=== PATIENT | male | born 1960 | race Caucasian/White ===

== ENCOUNTER 2017-09-15 15:20 | Emergency (ER) | payer BC ==
[2017-09-15] MEDS ORDERED: Proparacaine 0.5% Ophth Soln 15 ML Bottle EYEBOTH STA (15:32)
[2017-09-15] MEDS ORDERED: Diazepam 5 MG/ML 10 ML Vial MDV IV ONE (16:03)
[2017-09-15] MEDS ORDERED: Morphine 4 MG/ML Syringe IVPUSH ONE (16:03)
--- NOTE | 2017-09-15 16:05 | EDM.PDOC ---
ED HPI GENERAL MEDICAL PROBLEM - General Chief Complaint: Eye Problems Stated Complaint: PT SPILL FLUID IN LT EYE Time Seen by Provider: 09/15/17 15:32 Source of Information: Reports: Patient History Limitations: Reports: No Limitations - History of Present Illness INITIAL COMMENTS - FREE TEXT/NARRATIVE: History of present illness: []Patient poked his left eye with needle nose pliers approximately one hour ago. He has foreign body sensation in his eye and states his vision is mildly blurry. Review of systems: As per history of present illness and below otherwise all systems reviewed and negative. Past medical history: As per history of present illness and as reviewed below otherwise noncontributory. Surgical history: As per history of present illness and as reviewed below otherwise noncontributory. Social history: No reported history of drug or alcohol abuse. Family history: As per history of present illness and as reviewed below otherwise noncontributory. Physical exam: General: Well developed, well nourished in NAD HEENT: Eye erythematous, normocephalic, pupils reactive, negative for conjunctival pallor or scleral icterus, mucous membranes moist, throat clear, neck supple, nontender, trachea midline. Lungs: Clear to auscultation, breath sounds equal bilaterally, chest nontender. Heart: S1S2, regular, negative for clicks, rubs, or JVD. Abdomen: Soft, nondistended, nontender. Negative for masses or hepatosplenomegaly. Negative for costovertebral tenderness. Pelvis: Stable nontender. Genitourinary: Deferred. Rectal: Deferred. Extremities: Atraumatic, negative for cords or calf pain. Neurovascular unremarkable. Neuro: Awake, alert, oriented. Cranial nerves II through XII unremarkable. Cerebellum unremarkable. Motor and sensory unremarkable throughout. Exam nonfocal. Diagnostics: []Proparacaine placed in left eye and stained with fluorescein evaluated under blue light Therapeutics: [] Impression: []Corneal abrasion left eye Plan: []Erythromycin ointment as directed and follow-up with ophthalmology as needed Definitive disposition and diagnosis as appropriate pending reevaluation and review of above. Left Eye Pain Score (Numeric/FACES): 2 - Related Data Allergies Allergy/AdvReac Type Severity Reaction Status Date / Time No Known Allergies Allergy Verified 09/15/17 16:00 Home Meds: Home Meds Erythromycin Base [Erythromycin 0.5% Ophth Oint] 1 applic OP Q12H #1 tube [Rx] Past Medical History Psychiatric History: Reports: Other (See Below) Other Psychiatric History: narcolepsy - Infectious Disease History Infectious Disease History: Reports: Chicken Pox Social & Family History - Family History Family Medical History: Noncontributory - Tobacco Use Smoking Status *Q: Never Smoker - Recreational Drug Use Recreational Drug Use: No ED ROS GENERAL - Review of Systems Review Of Systems: See Below (See history of present illness) ED EXAM GENERAL W FULL EYE - Physical Exam Exam: See Below (See history of present illness) Course - Vital Signs Last Recorded V/S: Last Vital Signs Temp 97.7 F 09/15/17 15:58 Pulse 80 09/15/17 15:58 Resp 18 09/15/17 15:58 BP 122/82 09/15/17 15:58 Pulse Ox 93 L 09/15/17 15:58 - Orders/Labs/Meds Meds: Medications Discontinued Medications Generic Name Dose Route Start Last Admin Trade Name Keli PRN Reason Stop Dose Admin Proparacaine HCl 1 ml 09/15/17 15:32 Proparacaine 0.5% Ophth Soln EYEBOTH 09/15/17 15:33 NOW STA Departure - Departure Time of Disposition: 16:29 Disposition: Home, Self-Care 01 Condition: Good Clinical Impression: Injury of conjunctiva and corneal abrasion of left eye without foreign body - Discharge Information Prescriptions: Erythromycin Base [Erythromycin 0.5% Ophth Oint] 1 applic OP Q12H #1 tube Referrals: PCP,None [Primary Care Provider] - Forms: ED Department Discharge
== END 2017-09-15 16:50 | disposition home or self-care (01) ==
LOC: MW.ED 15:20
DX: S05.02XA Injury of conjunctiva and corneal abrasion without foreign body, left eye, initial encounter (principal); W22.8XXA Striking against or struck by other objects, initial encounter
CPT/HCPCS: 99282; 99283

== ENCOUNTER 2018-01-27 09:23 | Day surgery (SDC) | payer BC ==
[~2018-01-27 09:23] MED LIST: Lactated Ringers 1,000 ML IV SCH
--- NOTE | 2018-01-27 10:07 | PCM.PREANE ---
Preanesthetic Assessment - Procedure Proposed Procedure: Colonoscopy - Anesthesia/Transfusion/Family Hx Anesthesia History: No Prior Anesthesia Family History of Anesthesia Reaction: No Transfusion History: No Prior Transfusion(s) - Review of Systems General: No Symptoms Pulmonary: No Symptoms Cardiovascular: No Symptoms Gastrointestinal: No Symptoms Neurological: No Symptoms, Other (stroke in late 1190s - recovered) Other: Reports: None - Physical Assessment NPO Status Date: 01/27/18 NPO Status Time: 05:00 (water) Height: 5 ft 11 in Weight: 186 lb ASA Class: 2 Mental Status: Alert & Oriented x3 Airway Class: Mallampati = 1 Dentition: Reports: Normal Dentition Thyro-Mental Finger Breadths: 3 Mouth Opening Finger Breadths: 3 ROM/Head Extension: Full Lungs: Clear to Auscultation, Normal Respiratory Effort Cardiovascular: Regular Rate, Regular Rhythm, No Murmurs - Allergies Allergies/Adverse Reactions: Allergies Allergy/AdvReac Type Severity Reaction Status Date / Time No Known Allergies Allergy Verified 01/22/18 08:30 - Blood Blood Available: No - Anesthesia Plan Pre-Op Medication Ordered: None - Acknowledgements Anesthesia Type Planned: MAC Pt an Appropriate Candidate for the Planned Anesthesia: Yes Alternatives and Risks of Anesthesia Discussed w Pt/Guardian: Yes Pt/Guardian Understands and Agrees with Anesthesia Plan: Yes PreAnesthesia Questionnaire HEENT History: Reports: Other (See Below) Other HEENT History: wears glasses Neurological History: Reports: CVA, TIA, Other (See Below) Other Neuro History: cerebral infarct 1998, 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, excessive somnolence Psychiatric History: Reports: Other (See Below) Other Psychiatric History: excessive somnolence - Infectious Disease History Infectious Disease History: Reports: Chicken Pox - Past Surgical History Head Surgeries/Procedures: Reports: None - SUBSTANCE USE Smoking Status *Q: Never Smoker Recreational Drug Use History: No - HOME MEDS Home Medications: Home Meds Alpha Lipoic Acid 200 mg PO DAILY 01/22/18 [History] Calcium Citrate/Vitamin D3 [Citracal + D Maximum Caplet] 1 tab PO BID 01/22/18 [ History] Collodion 1 dose PO DAILY 01/22/18 [History] Fish Oil/[place]-3 Fatty Acids [Fish Oil 1,000 MG] 1 tab PO DAILY 01/22/18 [ History] Garlic 1 tab PO DAILY 01/22/18 [History] Gluc HCl/Csa/Tory Hy/Hyalur Ac [Glucosamine Chondroitin] 1 tab PO DAILY [History] Modafinil 200 mg PO DAILY 01/22/18 [History] Multivitamin [Multivitamins] 1 tab PO DAILY 01/22/18 [History] Tretinoin/Emollient Base [Tretinoin 0.05% Emollient Crm] 1 applic TOP ASDIRECTED 01/22/18 [History] Ubidecarenone/[place]-3/Vit E [Co Q-10-Vit E-Fish Oil Sfgl] 1 tab PO DAILY [History] - CURRENT (IN HOUSE) MEDS Current Meds: Current Medications Lactated Ringer's (Ringers, Lactated) 1,000 mls @ 125 mls/hr IV ASDIRECTED GI
[2018-01-27] MEDS ORDERED: fentaNYL 100 MCG/2 ML SDV ONE (10:28)
[2018-01-27] MEDS ORDERED: Propofol 200 MG/20 ML SDV ONE ×2 (10:28→10:29)
[2018-01-27] MEDS ORDERED: Lidocaine 2% 5 ML SDV ONE (10:28)
[2018-01-27] MEDS ORDERED: Midazolam 1 MG/ML 2 ML SDV ONE (10:28)
[2018-01-27] MEDS ORDERED: Ondansetron 4 MG/2 ML SDV IVPUSH PRN (11:14)
[2018-01-27] MEDS ORDERED: Sodium Chloride 0.9% 10 ML Syringe FLUSH PRN (11:14)
[2018-01-27] MEDS ORDERED: Sodium Chloride 0.9% 2.5 ML Syringe FLUSH PRN (11:14)
--- NOTE | 2018-01-27 11:16 | PCM.OPNOTE ---
- General Post-Op/Procedure Note Date of Surgery/Procedure: 01/27/18 Operative Procedure(s): Colonoscopy Pre Op Diagnosis: Desire for colorectal cancer screening Post-Op Diagnosis: No evidence of neoplasia Anesthesia Technique: MAC (ASA II) Primary Surgeon: Santos Jones Forest Firefighter: Chris Couch Condition: Good Free Text/Narrative:: DICTATION [id number] CPT CODE 36139
--- NOTE | 2018-01-27 11:41 | PCM.POSTAN ---
POST ANESTHESIA ASSESSMENT - MENTAL STATUS Mental Status: Alert, Oriented - RESPIRATORY Respiratory Status: Respiratory Rate WNL, Airway Patent, O2 Saturation Stable - CARDIOVASCULAR CV Status: Pulse Rate WNL, Blood Pressure Stable - GASTROINTESTINAL GI Status: No Symptoms - POST OP HYDRATION Hydration Status: Adequate & Stable
--- NOTE | 2018-01-27 12:20 | PCM48HPAN ---
Post Anesthesia Note - EVALUATION WITHIN 48HRS OF ANESTHETIC Vital Signs in Normal Range: Yes Patient Participated in Evaluation: Yes Respiratory Function Stable: Yes Airway Patent: Yes Cardiovascular Function Stable: Yes Hydration Status Stable: Yes Pain Control Satisfactory: Yes Nausea and Vomiting Control Satisfactory: Yes Mental Status Recovered: Yes Resp Rate: 16 - COMMENTS/OBSERVATIONS Free Text/Narrative:: Still noting the effects of mild disorientation but knows he is done and taking PO; no complaints.
--- NOTE | 2018-01-27 12:54 | OR ---
SURGEON: Santos Jones M.D. DATE OF PROCEDURE: 01/27/2018 OPERATION PERFORMED: Colonoscopy. SCHEDULING MANAGER: Dr. Alvarado, PGY2 ANESTHESIA: MAC. ASA CLASSIFICATION: II. PREOPERATIVE DIAGNOSIS: Desire for colorectal cancer screening. POSTOPERATIVE DIAGNOSIS: No evidence of neoplasia. DESCRIPTION OF PROCEDURE: The patient was taken to the endoscopy room and positioned on the endoscopy table in the left lateral decubitus position. Time-out was called for appropriate identification of the patient and procedure. Monitored anesthesia care was provided. The colonoscope was inserted into the rectum and advanced with minimal difficulty to the cecum where the colonoscope was retroflexed to visualize the ascending colon from below. The colonoscope was then straightened and slowly withdrawn. The cecum, ascending colon, hepatic flexure, transverse colon, splenic flexure, descending colon, sigmoid colon, and rectum were very well visualized. No tumors, polyps, diverticula, or angiodysplastic changes were noted. There was no evidence of inflammatory bowel disease. Once the colonoscope was withdrawn to the rectum, it was retroflexed to visualize the anal orifice from above. Again, no tumors or polyps were seen, and there were no acute hemorrhoidal changes. The colonoscope was then straightened, the rectum aspirated, and the colonoscope removed. The patient tolerated the procedure well and was taken to recovery room in satisfactory condition. HEIDY CUEVA /[id number]
== END 2018-01-27 13:05 | disposition home or self-care (01) ==
LOC: MW.SDS 09:23
PROVIDERS: ATTEND Surgery
DX: Z12.11 Encounter for screening for malignant neoplasm of colon (principal); E78.5 Hyperlipidemia, unspecified; N52.9 Male erectile dysfunction, unspecified; G47.10 Hypersomnia, unspecified; L72.3 Sebaceous cyst; Z79.899 Other long term (current) drug therapy
CPT/HCPCS: 45378; J2250; J2704; J3010; J7120; 00812

== ENCOUNTER 2018-03-17 06:33 | Day surgery (SDC) | payer BC ==
[~2018-03-17 06:33] MED LIST changes: +ceFAZolin 2 GM in Premix Bag 1 BAG IV SCH
[2018-03-17] MEDS ORDERED: Propofol 200 MG/20 ML SDV ONE (06:52)
[2018-03-17] MEDS ORDERED: Rocuronium 10 MG/ML 10 ML Syringe ONE (06:53)
[2018-03-17] MEDS ORDERED: ePHEDrine 50 MG/ML SDV ONE (06:53)
[2018-03-17] MEDS ORDERED: Lidocaine 2% 5 ML SDV ONE (06:53)
[2018-03-17] MEDS ORDERED: fentaNYL 250 MCG/5 ML SDV ONE (06:54)
[2018-03-17] MEDS ORDERED: Midazolam 1 MG/ML 2 ML SDV ONE (06:54)
[2018-03-17] MEDS ORDERED: Succinylcholine 200 MG/10 ML MDV ONE (06:55)
[2018-03-17] MEDS ORDERED: Bupivacaine 0.5% 10 ML SDV ONE (07:20)
[2018-03-17] MEDS ORDERED: ceFAZolin 1 GM Vial ONE (07:20)
--- NOTE | 2018-03-17 07:33 | PCM.PREANE ---
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 no residual. - Review of Systems General: No Symptoms (discovered at time of other medical care), Other Pulmonary: No Symptoms Cardiovascular: Other (occasional irregular heartbeat - no meds) Gastrointestinal: No Symptoms Neurological: Other (see above) - Physical Assessment NPO Status Date: 03/16/18 NPO Status Time: 22:00 O2 Sat by Pulse Oximetry: 98 Respiratory Rate: 16 Vital Signs: Last Vital Signs Temp 97.2 F 03/17/18 07:19 Pulse 48 L 03/17/18 07:19 Resp 16 03/17/18 07:19 BP 127/80 03/17/18 07:19 Pulse Ox 98 03/17/18 07:19 Height: 5 ft 11 in Weight: 185 lb ASA Class: 2 Mental Status: Alert & Oriented x3 Airway Class: Mallampati = 1 Dentition: Reports: Normal Dentition Thyro-Mental Finger Breadths: 3 Mouth Opening Finger Breadths: 3 ROM/Head Extension: Full Lungs: Clear to Auscultation, Normal Respiratory Effort Cardiovascular: Regular Rate, Regular Rhythm, No Murmurs - Allergies Allergies/Adverse Reactions: Allergies Allergy/AdvReac Type Severity Reaction Status Date / Time No Known Allergies Allergy Verified 03/12/18 12:21 - Blood Blood Available: No Product(s) Available: None - Anesthesia Plan Pre-Op Medication Ordered: None - Acknowledgements Anesthesia Type Planned: General Anesthesia (OET) Pt an Appropriate Candidate for the Planned Anesthesia: Yes Alternatives and Risks of Anesthesia Discussed w Pt/Guardian: Yes Pt/Guardian Understands and Agrees with Anesthesia Plan: Yes PreAnesthesia Questionnaire HEENT History: Reports: Other (See Below) Other HEENT History: wears glasses Gastrointestinal History: Reports: None Neurological History: Reports: CVA, TIA, Other (See Below) Other Neuro History: cerebral infarct 1998, 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, excessive somnolence Psychiatric History: Reports: Other (See Below) Other Psychiatric History: excessive somnolence - Infectious Disease History Infectious Disease History: Reports: Chicken Pox - Past Surgical History Head Surgeries/Procedures: Reports: None GI Surgical History: Reports: Colonoscopy - SUBSTANCE USE Smoking Status *Q: Never Smoker Recreational Drug Use History: No - HOME MEDS Home Medications: Home Meds Alpha Lipoic Acid 200 mg PO DAILY 01/22/18 [History] Calcium Citrate/Vitamin D3 [Citracal + D Maximum Caplet] 1 tab PO BID 01/22/18 [ History] Collodion 1 dose PO DAILY 01/22/18 [History] Fish Oil/[place]-3 Fatty Acids [Fish Oil 1,000 MG] 1 tab PO DAILY 01/22/18 [ History] Garlic 1 tab PO DAILY 01/22/18 [History] Gluc HCl/Csa/Tory Hy/Hyalur Ac [Glucosamine Chondroitin] 1 tab PO DAILY [History] Modafinil 200 mg PO DAILY 01/22/18 [History] Multivitamin [Multivitamins] 1 tab PO DAILY 01/22/18 [History] Tretinoin/Emollient Base [Tretinoin 0.05% Emollient Crm] 1 applic TOP ASDIRECTED 01/22/18 [History] Ubidecarenone/[place]-3/Vit E [Co Q-10-Vit E-Fish Oil Sfgl] 1 tab PO DAILY [History] - CURRENT (IN HOUSE) MEDS Current Meds: Current Medications Cefazolin Sodium/Dextrose 2 gm (/ Premix) 50 mls @ 100 mls/hr IV ONETIME GI Lactated Ringer's (Ringers, Lactated) 1,000 mls @ 125 mls/hr IV ASDIRECTED [facility] Last Admin: 03/17/18 07:16 Dose: 125 mls/hr Discontinued Medications Bupivacaine HCl (Sensorcaine-Mpf 0.5%) Confirm Administered Dose 10 ml .ROUTE .STK-MED ONE Stop: 03/17/18 07:21 Cefazolin Sodium (Ancef) Confirm Administered Dose 1 gm .ROUTE .STK-MED ONE Stop: 03/17/18 07:21 Ephedrine Sulfate (Ephedrine Sulfate) Confirm Administered Dose 50 mg .ROUTE .STK-MED ONE Stop: 03/17/18 06:54 Fentanyl (Sublimaze) Confirm Administered Dose 250 mcg .ROUTE .STK-MED ONE Stop: 03/17/18 06:55 Lidocaine (Xylocaine-Mpf 2%) Confirm Administered Dose 5 ml .ROUTE .STK-MED ONE Stop: 03/17/18 06:54 Midazolam HCl (Versed 1 Mg/Ml) Confirm Administered Dose 2 mg .ROUTE .STK-MED ONE Stop: 03/17/18 06:55 Propofol (Diprivan 20 Ml) Confirm Administered Dose 200 mg .ROUTE .STK-MED ONE Stop: 03/17/18 06:53 Rocuronium Hyampom (Zemuron) Confirm Administered Dose 100 mg .ROUTE .STK-MED ONE Stop: 03/17/18 06:54 Succinylcholine Chloride (Quelicin) Confirm Administered Dose 200 mg .ROUTE .STK -MED ONE Stop: 03/17/18 06:56
[2018-03-17] MEDS ORDERED: Acetaminophen/HYDROcodone 325-5 MG Tab PO PRN (09:07)
[2018-03-17] MEDS ORDERED: Morphine 4 MG/ML Syringe IVPUSH PRN (09:07)
[2018-03-17] MEDS ORDERED: Ondansetron 4 MG/2 ML SDV IVPUSH PRN (09:07)
--- NOTE | 2018-03-17 09:13 | PCM.OPNOTE ---
- General Post-Op/Procedure Note Date of Surgery/Procedure: 03/17/18 Operative Procedure(s): Repair reducible right inguinal hernia with large Bard PerFix plug and patch Pre Op Diagnosis: Reducible right inguinal hernia Post-Op Diagnosis: Reducible direct right inguinal hernia Anesthesia Technique: General ET Tube (ASA II) Primary Surgeon: Santos Jones Fluid Replacement, Intraop: 900 EBL in mLs: 10 Condition: Good Free Text/Narrative:: DICTATION [id number] CPT CODE [id number]
[2018-03-17] MEDS ORDERED: Lactated Ringers 1,000 ML IV SCH (09:15)
[2018-03-17] MEDS ORDERED: Acetaminophen 1,000 MG in Premix Bag 1 BAG IV ONE (09:23)
--- NOTE | 2018-03-17 09:43 | OR ---
SURGEON: Santos Jones M.D. DATE OF PROCEDURE: 03/17/2018 OPERATION PERFORMED: Repair reducible right inguinal hernia with large Bard PerFix plug and patch. ANESTHESIA: General endotracheal. ASA CLASSIFICATION: II. PREOPERATIVE DIAGNOSIS: Reducible right inguinal hernia. POSTOPERATIVE DIAGNOSIS: Reducible right inguinal hernia. INTRAOPERATIVE FLUID REPLACEMENT: 900 mL of crystalloid. ESTIMATED BLOOD LOSS: 10 mL. DESCRIPTION OF PROCEDURE: The patient was taken to the operating room and placed on the operating table in the supine position. Time-out was called for appropriate identification of patient and procedure. Thigh-high TEDs and sequential compression boots were placed. The surgical site had been marked prior to the patient entering the operating room. Following satisfactory attainment of general endotracheal anesthesia, the abdomen was prepped with DuraPrep solution and sterile drapes were applied. The skin incision was marked out in the right inguinal crease and infiltrated with 10 mL of 0.5% Marcaine solution. The skin incision was made and deepened through the subcutaneous tissue obtaining hemostasis with the use of electrocautery. Dissection was carried down to the external oblique fascia, which was opened in the direction of its fibers. The cord was then identified and mobilized. The defect was a medial direct defect which was easily able to be reduced. A large Bard PerFix plug and patch was brought to the operating table and soaked in 1% Ancef solution. The cord was retracted out of harm's way using a Abdulaziz drain. The plug was placed into the medial defect and secured both inferiorly and superiorly with 0 Ethibond sutures. The patch was then placed over this. Both plug and patch had been soaked in 1% Ancef solution. The patch was now secured with multiple interrupted 0 Ethibond sutures medially and inferiorly to Kobi's ligament transitioning to the inguinal ligament and superiorly to the transversalis fascia. The wings of the patch were brought around the cord laterally and secured with an 0 Ethibond suture. All sutures except the lateral suture were secured. The patient was given a Valsalva maneuver to 40 cm of water and the repair was solid. The wound was then inspected for hemostasis. No bleeding was noted. The cord was returned to its anatomic location. The external oblique was then reapproximated over the cord with running 3-0 Vicryl. Tatiana's fascia was closed with running 3-0 Vicryl. The skin edges were then reapproximated with subcuticular 4-0 Monocryl reinforced with Steri-Strips. Sterile Tegaderm pad was placed as a dressing. Sponge, needle, and instrument counts were all correct. The patient tolerated the procedure well. Following emergence from anesthesia and extubation, he was taken to recovery room in stable condition. HEIDY CUEVA /[id number]
--- NOTE | 2018-03-17 11:30 | PCM48HPAN ---
Post Anesthesia Note - EVALUATION WITHIN 48HRS OF ANESTHETIC Vital Signs in Normal Range: Yes Patient Participated in Evaluation: Yes Respiratory Function Stable: Yes Airway Patent: Yes Cardiovascular Function Stable: Yes Hydration Status Stable: Yes Pain Control Satisfactory: Yes Nausea and Vomiting Control Satisfactory: Yes Mental Status Recovered: Yes Resp Rate: 12
== END 2018-03-17 12:00 | disposition home or self-care (01) ==
LOC: MW.SDS 06:33
PROVIDERS: ATTEND Surgery
DX: K40.90 Unilateral inguinal hernia, without obstruction or gangrene, not specified as recurrent (principal); E78.5 Hyperlipidemia, unspecified; Z86.73 Personal history of transient ischemic attack (TIA), and cerebral infarction without residual deficits; Z79.899 Other long term (current) drug therapy
CPT/HCPCS: 49505; A9270; C1781; J0131; J0330; J0690; J2250; J2704; J3010; J3490; J7120; 00840